=== PATIENT | female | born 1985 | race African-American/Black ===

== ENCOUNTER 2018-02-12 19:17 | Emergency (ER) | payer MEDICAID ==
[~2018-02-12] VITALS: Ht 167.6 cm; Wt 66.3 kg
[2018-02-12 19:26] VITALS: BP 145/97
--- NOTE | 2018-02-12 19:40 | NUR ---
PT AMBULATED TO ED DAINA
--- NOTE | 2018-02-12 22:04 | NUR ---
PT AMBULATED TO ED BED 11
--- NOTE | 2018-02-12 22:04 | NUR ---
32/F CAME IN W C/O ITCHING AND RASH TO STEVO LEGS AND BACK X 3 DAYS. PT REPORTS SHE HAD A STAY IN A HOTEL PRIOR TO ONSET OF SX. DENIES FEVER/CHILL, N/V/D. PMH: HTN
[2018-02-12] MEDS ORDERED: predniSONE 20 MG TAB PO ONE (22:20)
[2018-02-12] MEDS ORDERED: diphenhydrAMINE 50 MG/ML VIAL IM ONE (22:20)
--- NOTE | 2018-02-12 22:34 | NUR ---
PATIENT LEFT WITHOUT DC PAPERS Patient discharged with v/s stable. Written and verbal after care instructions given and explained. Patient alert, oriented and verbalized understanding of instructions. Ambulatory with steady gait. All questions addressed prior to discharge. ID band removed. Patient advised to follow up with PMD. Rx of BENADRYL AND PREDNISONE given. Patient educated on indication of medication including possible reaction and side effects. Opportunity to ask questions provided and answered.
[2018-02-12 22:40] VITALS: BP 128/71
== END 2018-02-12 22:34 | disposition home or self-care (01) ==
LOC: MED 19:17
DX: L50.9 Urticaria, unspecified (principal); F17.200 Nicotine dependence, unspecified, uncomplicated; Z98.890 Other specified postprocedural states
CPT/HCPCS: 81025; 96372; 99283; J1200; J7512